=== PATIENT | male | born 1960 | race Caucasian/White ===

== ENCOUNTER 2018-12-01 17:52 | Emergency (ER) | payer BC ==
[~2018-12-01] VITALS: Ht 175.3 cm; Wt 113.6 kg
[2018-12-01 18:39] LABS: BASOPHILS # (AUTO) 0.1 X10'3 (0-0.2); EOSINOPHILS # (AUTO) 0.2 X10'3 (0-0.9); EOSINOPHILS % (AUTO) 2.5 % (0-6); LYMPHOCYTES # (AUTO) 1.1 X10'3 (1.1-4.8); LYMPHOCYTES % (AUTO) 12.6 % (21-51); MEAN CORPUSCULAR HEMOGLOBIN 33.1 PG (27.0-31.0); MEAN CORPUSCULAR HGB CONC 34.2 g/dL (33.0-36.5); MEAN CORPUSCULAR VOLUME 96.8 FL (78-98); MEAN PLATELET VOLUME 7.2 FL (7.4-10.4); MONOCYTES # (AUTO) 0.7 X10'3 (0-0.9); MONOCYTES % (AUTO) 7.6 % (2-12); NEUTROPHILS # (AUTO) 6.9 X10'3 (1.8-7.7); NEUTROPHILS % (AUTO) 76.3 % (42-75); PLATELET COUNT 381 X10'3 (140-440); RED BLOOD COUNT 4.24 X10'6 (4.70-6.10); RED CELL DISTRIBUTION WIDTH 13.8 % (11.5-14.5); WHITE BLOOD COUNT 9.1 X10'3 (4.5-11.0)
[2018-12-01 18:51] LABS: ALANINE AMINOTRANSFERASE 67 U/L (12-78); ALBUMIN 3.8 G/DL (3.4-5.0); ALBUMIN/GLOBULIN RATIO 1.3 (1.1-1.5); ALKALINE PHOSPHATASE 58 IU/L (46-116); ANION GAP 11 (8-16); ASPARTATE AMINO TRANSFERASE 37 U/L (10-37); BILIRUBIN,TOTAL 0.7 MG/DL (0.1-1.0); BLOOD UREA NITROGEN 13 MG/DL (7-18); BUN/CREATININE RATIO 13.5 (5.4-32.0); CALCIUM 8.9 MG/DL (8.5-10.1); CHLORIDE 100 MMOL/L (99-107); CREATININE 0.96 MG/DL (0.60-1.10); GLUCOSE 223 MG/DL (70-104); POTASSIUM 3.6 MMOL/L (3.5-5.1); SODIUM 135 MMOL/L (135-145); TOTAL CARBON DIOXIDE 24.4 MMOL/L (24-32); TOTAL PROTEIN 6.7 G/DL (6.4-8.2); eGFR 80 ML/MIN
[2018-12-01] MEDS ORDERED: TRAZ-251 PO (18:52)
[2018-12-01] MEDS ORDERED: SERT100T10 PO (18:52)
[2018-12-01] MEDS ORDERED: FLO0.4C PO (18:52)
[2018-12-01] MEDS ORDERED: FENO145T36 PO (18:52)
[2018-12-01] MEDS ORDERED: PANT-47 PO (18:52)
[2018-12-01] MEDS ORDERED: LORA0.5T PO (18:52)
[2018-12-01] MEDS ORDERED: IRON PO (18:52)
[2018-12-01] MEDS ORDERED: ICOS1CAP PO (18:52)
[2018-12-01] MEDS ORDERED: HYDR25TA4 PO (18:52)
[2018-12-01] MEDS ORDERED: GABA-532 PO (18:52)
[2018-12-01] MEDS ORDERED: NIAC100T3 PO (18:52)
[2018-12-01] MEDS ORDERED: LISI40TA4 PO (18:52)
[2018-12-01] MEDS ORDERED: ATOR40TA PO (18:52)
[2018-12-01] MEDS ORDERED: MULTIVITAMIN PO (18:52)
[2018-12-01] MEDS ORDERED: SEMA1PEN SQ (18:52)
[2018-12-01] MEDS ORDERED: METF500T PO (18:52)
[2018-12-01] MEDS ORDERED: MONT10TA24 PO (18:52)
[2018-12-01] MEDS ORDERED: CELE-193 PO (18:52)
[2018-12-01] MEDS ORDERED: ASPI-611 PO (18:52)
[2018-12-01] MEDS ORDERED: CHOL100046 PO (18:52)
[2018-12-01] MEDS ORDERED: AMLO2.5T2 PO (18:52)
[2018-12-01 19:09] LABS: CLARITY,URINE CLEAR (Clear); COLOR,URINE YELLOW (Yellow); GLUCOSE, URINE 250 mg/dl (Neg); KETONES,URINE NEGATIVE (Neg); LEUKOCYTE ESTERASE ,URINE NEGATIVE (Neg); NITRITES, URINE NEGATIVE (Neg); OCCULT BLOOD,URINE NEGATIVE (Neg); PROTEIN,URINE NEGATIVE (Neg)
[2018-12-01 19:10] LABS: UA COLLECTION TYPE URINAL
--- NOTE | 2018-12-01 19:13 | NUR ---
PT TO CT Addendum: 12/01/18 at 1914 by SCOLEY PT TO XRAY
[2018-12-01] MEDS ORDERED: POLY17PO10 PO (19:35)
[2018-12-01 20:03] VITALS: BP 129/88
== END 2018-12-01 20:12 | disposition home or self-care (01) ==
LOC: ER 17:53
DX: K59.00 Constipation, unspecified (principal); E11.9 Type 2 diabetes mellitus without complications; G89.29 Other chronic pain; Z90.49 Acquired absence of other specified parts of digestive tract; Z98.890 Other specified postprocedural states; Z88.1 Allergy status to other antibiotic agents; Z88.8 Allergy status to other drugs, medicaments and biological substances; Z79.82 Long term (current) use of aspirin; Z79.84 Long term (current) use of oral hypoglycemic drugs; Z79.2 Long term (current) use of antibiotics; Z79.899 Other long term (current) drug therapy
CPT/HCPCS: 74018; 80053; 81003; 85025; 85610; 99284

== ENCOUNTER 2020-05-19 14:52 | Observation (INO) | payer BC ==
[~2020-05-19] VITALS: Ht 175.3 cm; Wt 112.7 kg
[~2020-05-19 14:52] MED LIST: AMLO2.5T2 PO; ASPI-611 PO; ATOR40TA PO; CELE-193 PO; CHOL100046 PO; FENO145T26 PO; FLO0.4C PO; GABA-532 PO; HYDR25TA4 PO; ICOS1CAP PO; IRON PO; LISI40TA13 PO; LORA0.5T PO; METF500T PO; MONT10TA32 PO; MULTIVITAMIN PO; PANT-47 PO; SEMA1PEN SQ; SERT-434 PO; TRAZ-251 PO; [UNRECOGNIZED DRUG - CODE] PO
[2020-05-19 15:50] LABS: BASOPHILS # (AUTO) 0.1 X10'3 (0-0.2); BASOPHILS % (AUTO) 0.8 % (0-1); EOSINOPHILS # (AUTO) 0.2 X10'3 (0-0.9); EOSINOPHILS % (AUTO) 2.9 % (0-6); HEMOGLOBIN 14.3 g/dl (14.0-17.9); LYMPHOCYTES % (AUTO) 12.9 % (21-51); MEAN CORPUSCULAR HEMOGLOBIN 32.4 PG (27.0-31.0); MEAN CORPUSCULAR HGB CONC 34.9 g/dL (33.0-36.5); MEAN PLATELET VOLUME 7.1 FL (7.4-10.4); MONOCYTES # (AUTO) 0.9 X10'3 (0-0.9); MONOCYTES % (AUTO) 11.2 % (2-12); NEUTROPHILS # (AUTO) 5.7 X10'3 (1.8-7.7); NEUTROPHILS % (AUTO) 72.2 % (42-75); PLATELET COUNT 356 X10'3 (140-440); RED BLOOD COUNT 4.41 X10'6 (4.70-6.10); RED CELL DISTRIBUTION WIDTH 13.5 % (11.5-14.5); WHITE BLOOD COUNT 7.9 X10'3 (4.5-11.0)
[2020-05-19 16:06] LABS: ALANINE AMINOTRANSFERASE 46 U/L (12-78); ALBUMIN 3.7 G/DL (3.4-5.0); ALBUMIN/GLOBULIN RATIO 1.2 (1.1-1.5); ALKALINE PHOSPHATASE 53 IU/L (46-116); ANION GAP 9 (8-16); ASPARTATE AMINO TRANSFERASE 25 U/L (10-37); BILIRUBIN,TOTAL 0.6 MG/DL (0.1-1.0); BLOOD UREA NITROGEN 14 MG/DL (7-18); BUN/CREATININE RATIO 16.9 (5.4-32.0); CALCIUM 8.9 MG/DL (8.5-10.1); CHLORIDE 101 MMOL/L (99-107); CREATININE 0.83 MG/DL (0.60-1.10); GLUCOSE 185 MG/DL (70-104); POTASSIUM 3.5 MMOL/L (3.5-5.1); SODIUM 136 MMOL/L (135-145); TOTAL CARBON DIOXIDE 25.7 MMOL/L (24-32); TOTAL PROTEIN 6.7 G/DL (6.4-8.2); eGFR > 90 ML/MIN
[2020-05-19] MEDS ORDERED: nitroGLYCERIN 0.4mg/hour patch TD ONE (16:35)
[2020-05-19] MEDS ORDERED: aspirin 325mg tablet PO ONE (16:35)
[2020-05-19] MEDS ORDERED: magnesium 2GM in 50ml NS 50 ML IV PRN (19:35)
[2020-05-19] MEDS ORDERED: acetaminophen 325mg tablet PO PRN (19:35)
[2020-05-19] MEDS ORDERED: regadenoson 0.4mg/5ml syringe IV ONE (19:35)
[2020-05-19] MEDS ORDERED: mag hydrox/Alum hydrox/simeth 30ml oral suspension PO PRN (19:35)
[2020-05-19] MEDS ORDERED: potassium Cl 40MEQ/1/2NS 520ml 520 ML IV PRN ×2 (19:35)
[2020-05-19] MEDS ORDERED: morphine 2 MG/ML inj. syringe IV PRN (19:35)
[2020-05-19] MEDS ORDERED: magnesium Cl slow-release 64mg tablet PO PRN (19:35)
[2020-05-19] MEDS ORDERED: magnesium 4gm in 100ml NS 100 ML IV PRN (19:35)
[2020-05-19] MEDS ORDERED: ondansetron/PF 4mg/2ml inj IV PRN (19:35)
[2020-05-19] MEDS ORDERED: magnesium hydroxide 30ml (MOM) UD suspension PO PRN (19:35)
[2020-05-19] MEDS ORDERED: dextrose 50%-water 50ml dispensing syringe IV PRN ×2 (19:35)
[2020-05-19] MEDS ORDERED: glucagon, human recombinant 1mg kit SUBCUT PRN (19:35)
[2020-05-19] MEDS ORDERED: dextrose ORAL solution 15 GM/59 ML bottle PO PRN ×2 (19:35)
[2020-05-19] MEDS ORDERED: aminophylline 250mg/10ml inj. IV PRN (19:35)
[2020-05-19] MEDS ORDERED: insulin Lispro (HumaLOG) vial - multi-dose SQ SCH (19:35)
[2020-05-19] MEDS ORDERED: MESSAGE TO PHARMACY PO ONE (19:35)
[2020-05-19] MEDS ORDERED: nitroGLYCERIN 0.4mg SUBLingual tab SL PRN (19:35)
[2020-05-19] MEDS ORDERED: potassium Cl 20 mEq SR tablet PO PRN ×2 (19:35)
[2020-05-19] MEDS ORDERED: metoprolol tartrate 1mg/ml inj IV PRN (19:35)
[2020-05-19] MEDS ORDERED: MULT-1074 PO (20:29)
[2020-05-19] MEDS ORDERED: AMLO5TAB16 PO (20:29)
[2020-05-19] MEDS ORDERED: FERR-116 PO (20:29)
[2020-05-19] MEDS ORDERED: AZEL137S4 (20:40)
[2020-05-19] MEDS ORDERED: BACL10TA2 PO (20:40)
[2020-05-19] MEDS: K and/or MAG REPLACEMENT MC SCH (20:52)
[2020-05-19] MEDS ORDERED: insulin glargine (Lantus) pen - multi-dose SQ SCH (21:00)
[2020-05-19 21:38] LABS: HEMOGLOBIN A1C 7.3 % (4.5-6.2)
[2020-05-19 22:00] VITALS: BP 134/86
[2020-05-19] MEDS: HYDROcodone/acetaminophen 5mg/325mg tablet PO PRN (22:00)
[2020-05-19] MEDS ORDERED: traZODone 50mg tablet PO ONE (22:45)
[2020-05-19] MEDS ORDERED: celeCOXIB 100mg capsule PO ONE (22:45)
[2020-05-19] MEDS ORDERED: gabapentin 300mg capsule PO ONE (22:45)
[2020-05-19] MEDS ORDERED: tamsulosin 0.4mg capsule PO ONE (22:45)
[2020-05-20] VITALS (8 sets, daily range): BP systolic 112–131; BP diastolic 60–76
[2020-05-20 04:14] LABS: BASOPHILS # (AUTO) 0.1 X10'3 (0-0.2); BASOPHILS % (AUTO) 0.7 % (0-1); EOSINOPHILS # (AUTO) 0.2 X10'3 (0-0.9); HEMATOCRIT 36.4 % (42.0-52.0); HEMOGLOBIN 12.5 g/dl (14.0-17.9); MEAN CORPUSCULAR HEMOGLOBIN 32.2 PG (27.0-31.0); MEAN CORPUSCULAR HGB CONC 34.4 g/dL (33.0-36.5); MEAN CORPUSCULAR VOLUME 93.5 FL (78-98); MEAN PLATELET VOLUME 7.3 FL (7.4-10.4); MONOCYTES # (AUTO) 0.8 X10'3 (0-0.9); MONOCYTES % (AUTO) 10.5 % (2-12); NEUTROPHILS # (AUTO) 5.8 X10'3 (1.8-7.7); NEUTROPHILS % (AUTO) 72.8 % (42-75); PLATELET COUNT 315 X10'3 (140-440); RED BLOOD COUNT 3.89 X10'6 (4.70-6.10); RED CELL DISTRIBUTION WIDTH 13.4 % (11.5-14.5)
[2020-05-20 04:18] LABS: ALANINE AMINOTRANSFERASE 38 U/L (12-78); ALBUMIN 3.2 G/DL (3.4-5.0); ALBUMIN/GLOBULIN RATIO 1.2 (1.1-1.5); ALKALINE PHOSPHATASE 38 IU/L (46-116); ANION GAP 6 (8-16); ASPARTATE AMINO TRANSFERASE 19 U/L (10-37); BILIRUBIN,TOTAL 0.3 MG/DL (0.1-1.0); BLOOD UREA NITROGEN 16 MG/DL (7-18); BUN/CREATININE RATIO 18.4 (5.4-32.0); CALCIUM 8.9 MG/DL (8.5-10.1); CHLORIDE 103 MMOL/L (99-107); CREATININE 0.87 MG/DL (0.60-1.10); GLUCOSE 146 MG/DL (70-104); POTASSIUM 3.5 MMOL/L (3.5-5.1); SODIUM 138 MMOL/L (135-145); TOTAL CARBON DIOXIDE 29.4 MMOL/L (24-32); TOTAL PROTEIN 5.8 G/DL (6.4-8.2); eGFR 90 ML/MIN
[2020-05-20 04:20] LABS: MAGNESIUM 1.7 MG/DL (1.5-2.4)
[2020-05-20] MEDS: HYDROcodone/acetaminophen 5mg/325mg tablet PO PRN ×2 (05:06→09:31)
--- NOTE | 2020-05-20 06:59 | NUR ---
Patient in room [facility] 4013. I have received report from ALAN Narvaez and had the opportunity to ask questions and assume patient care.
--- NOTE | 2020-05-20 06:59 | NUR ---
Patient in room [facility] 4013. I have received report from ALAN Narvaez and had the opportunity to ask questions and assume patient care.
[2020-05-20] MEDS ORDERED: aspirin 81mg tablet.DR PO SCH (08:00)
[2020-05-20] MEDS ORDERED: atorvastatin 20mg tablet PO SCH (08:00)
[2020-05-20] MEDS ORDERED: pantoprazole 40mg Tablet.DR PO SCH (08:00)
[2020-05-20] MEDS ORDERED: celeCOXIB 100mg capsule PO SCH (08:00)
[2020-05-20] MEDS ORDERED: lisinopril 20mg tablet PO SCH (08:00)
[2020-05-20] MEDS ORDERED: amLODIPine 5mg tablet PO SCH (08:00)
[2020-05-20] MEDS ORDERED: Icosapent Ethyl (Vascepa) 2 CAP) PO SCH (08:00)
[2020-05-20] MEDS ORDERED: HYDROchlorothiazide 25mg tablet PO SCH (08:00)
[2020-05-20] MEDS ORDERED: gabapentin 300mg capsule PO SCH (08:00)
[2020-05-20] MEDS: K and/or MAG REPLACEMENT MC SCH (08:00)
[2020-05-20] MEDS ORDERED: sertraline 50mg tablet PO SCH (08:00)
--- NOTE | 2020-05-20 08:21 | NUR ---
low voltage technician at bedside
--- NOTE | 2020-05-20 10:47 | NUR ---
patient down to [facility] med for stress test.
--- NOTE | 2020-05-20 12:31 | NUR ---
patient back to room
--- NOTE | 2020-05-20 13:03 | NUR ---
Dr. Thomas aware patient has been NPO and no IV fluids infusing. Dr. Thomas wanting to wait for results of kiesha scan first.
--- NOTE | 2020-05-20 15:38 | NUR ---
Patient alert and oriented. Discussed discharge teaching, patient verbalizes understanding. No further questions.
--- NOTE | 2020-05-20 15:45 | NUR ---
Student documentation: I have reviewed and agree with all interventions, assessments performed and documented by Sn Dony. Student Medication Administration: For this medication-pass time frame, all medication were reviewed, dispensed, administered and documented per hospital policy by SN Dony.
--- NOTE | 2020-05-20 15:52 | NUR ---
patient discharged and transported down to lobby, spouse here to take him home.
--- NOTE | 2020-05-20 16:11 | NUR ---
DM Consult: Hx T2DM A1C 7.3. Pt currently going for stress test today per EMR; written DM ed w/ RD contact information placed in pt chart. Addendum: 05/20/20 at [address] Amended: Links added.
[2020-05-20] MEDS ORDERED: traZODone 50mg tablet PO SCH (21:00)
[2020-05-20] MEDS ORDERED: tamsulosin 0.4mg capsule PO SCH (21:00)
== END 2020-05-20 15:50 | disposition home or self-care (01) ==
LOC: ER 14:53 → ED HOLD 19:33 → ORTHO 4S 21:48
PROVIDERS: ADMIT Family Medicine; ATTEND Family Medicine
DX: R07.89 Other chest pain (principal); I20.0 Unstable angina; E11.9 Type 2 diabetes mellitus without complications; G47.30 Sleep apnea, unspecified; E78.5 Hyperlipidemia, unspecified; I10 Essential (primary) hypertension; G89.29 Other chronic pain; M54.9 Dorsalgia, unspecified; K21.9 Gastro-esophageal reflux disease without esophagitis; Z90.49 Acquired absence of other specified parts of digestive tract; Z98.84 Bariatric surgery status; Z79.84 Long term (current) use of oral hypoglycemic drugs; Z79.899 Other long term (current) drug therapy; Z88.1 Allergy status to other antibiotic agents
CPT/HCPCS: 36415; 71045; 78452; 80053; 82948; 83036; 83735; 83880; 84484; 85025; 87081; 93005; 93017; 93306; 93971; 99285; A9500; G0378; J1815; J2785